=== PATIENT | female | born 1945 | race Native Hawaiian/Other Pacific Islander ===

== ENCOUNTER 2016-08-25 10:25 | Outpatient (CLI) | payer OTHER ==
[~2016-08-25 10:25] MED LIST: BYSTOLIC2.5 MG OR; LIPITOR10 MG OR; NEXIUM40 M1 PO; SINGULAIR10 MG PO
== END 2016-08-25 19:29 | disposition home or self-care (01) ==
LOC: RAD 10:25
DX: J45.20 Mild intermittent asthma, uncomplicated (principal)

== ENCOUNTER 2017-05-27 07:36 | Outpatient (CLI) | payer OTHER | END 2017-05-27 21:47 | disposition home or self-care (01) | LOC: RAD 07:36 | DX: M81.0 Age-related osteoporosis without current pathological fracture (principal) ==

== ENCOUNTER 2022-06-20 09:44 | Outpatient (CLI) | payer OTHER | END 2022-06-20 19:07 | disposition home or self-care (01) | LOC: US 09:44 | PROVIDERS: ATTEND Nurse Practitioner Family | DX: R59.0 Localized enlarged lymph nodes (principal) ==

== ENCOUNTER 2022-06-26 09:47 | Outpatient (CLI) | payer OTHER | END 2022-06-26 19:00 | disposition home or self-care (01) | LOC: CT 09:47 | PROVIDERS: ATTEND Nurse Practitioner Family | DX: R59.0 Localized enlarged lymph nodes (principal) | CPT/HCPCS: Q9963 ==